=== PATIENT | male | born 1965 | race Caucasian/White ===

== ENCOUNTER → 2023-12-27 13:47 | Outpatient (REF) | payer OTHER, SELFPAY | LOC: DHCBC MAIN 13:47 | PROVIDERS: ATTENDING PHYSICIAN Internal Medicine Cardiovascular Disease; FAMILY PHYSICIAN Internal Medicine | DX: I48.91 Unspecified atrial fibrillation (principal) | CPT/HCPCS: 93306 ==

== ENCOUNTER → 2023-12-29 09:18 | Outpatient (REF) | payer OTHER, SELFPAY | LOC: RCS 09:18 | PROVIDERS: ATTENDING PHYSICIAN Internal Medicine Cardiovascular Disease; FAMILY PHYSICIAN Internal Medicine | DX: I48.91 Unspecified atrial fibrillation (principal) | CPT/HCPCS: 93225; 93226 ==

== ENCOUNTER 2025-01-17 06:27 | Day surgery (SDC) | payer OTHER, SELFPAY | END 2025-01-17 10:59 | disposition home or self-care (01) | LOC: GI 06:27 | PROVIDERS: ATTENDING PHYSICIAN Internal Medicine | DX: Z12.11 Encounter for screening for malignant neoplasm of colon (principal); K57.30 Diverticulosis of large intestine without perforation or abscess without bleeding; K64.8 Other hemorrhoids; K55.20 Angiodysplasia of colon without hemorrhage; D12.2 Benign neoplasm of ascending colon; D12.3 Benign neoplasm of transverse colon; D12.8 Benign neoplasm of rectum; D12.5 Benign neoplasm of sigmoid colon; K63.5 Polyp of colon; Z80.0 Family history of malignant neoplasm of digestive organs; Z83.719 Family history of colon polyps, unspecified | CPT/HCPCS: 45385; 45380; 88305 ==

== ENCOUNTER 2025-09-16 19:59 | Emergency (ER) | payer OTHER, SELFPAY ==
[2025-09-16 20:05] VITALS: BP 112/77
[2025-09-16 20:23] LABS: Hematocrit 48.0 % (39.0-52.0); Hemoglobin 16.4 g/dL (13.0-18.0); Mean Corp Hgb Conc. 34.2 g/dL (33.0-37.0); Mean Corpuscular Volume 89.2 fL (80.0-94.0); Nucleated Red Blood Cells % 0 % (-); Platelet Count 202 10^3/uL (130-400); Red Cell Dist. Width 12.7 % (11.5-14.5); Urine Character Slightly Cloudy (Clear)
[2025-09-16 20:31] LABS: Urine Squamous Cell 0-2 /LPF (Few)
[2025-09-16 20:32] LABS: Urine White Cell 0-2 /HPF (0-5)
[2025-09-16 20:46] LABS: ALT (SGPT) 32 U/L (0-50); AST (SGOT) 27 U/L (17-59); Albumin 4.3 g/dl (3.5-5.0); Alkaline Phosphatase 59 U/L (38-126); Blood Urea Nitrogen 20 mg/dl (9-20); Calcium 8.8 mg/dl (8.4-10.2); Carbon Dioxide 25 mmol/L (22-30); Chloride 100 mmol/L (98-107); Glucose 136 mg/dl (70-99); Lipase 40 U/L (23-300); Potassium 4.2 mmol/L (3.5-5.1); Sodium 134 mmol/L (135-145); Total Protein 7.7 g/dl (6.3-8.2); eGFR > 60.00
[2025-09-16 22:27] VITALS: BMI 29.6
[2025-09-16 22:58] VITALS: BP 106/74; BP 119/79; BP 138/79; PULSE 57; PULSE 83
[2025-09-16 23:17] LABS: COVID-19 Antigen Negative (Negative)
--- NOTE | 2025-09-17 00:26 | ED.GENMED ---
History of Present Illness
General
Chief Complaint: Cold/Flu/URI Symptoms
Source: patient
Exam Limitations: none
Time Seen by Provider: 09/16/25 23:01
Nursing documentation reviewed up to this point in time: agreed with
History of Present Illness
History of Present Illness:
60-year-old male presenting to the emergency department today with concerns of chills body aches over the past 2 days. Denies any significant chest pain shortness of breath abdominal pain nausea vomiting has had some loose and bowel movements but
denies additional symptoms otherwise.
Past History
Past History
ED Past Medical History: Hypercholesterolemia
ED Past Surgical History: None
Social History
Tobacco: Non-smoker
Alcohol: Occasional
Personal:
Living: with family
Family History
Family History: Diabetes and CAD; Negative Hypertension, Asthma or Cancer
Review of Systems
Review of Systems
Allergies reviewed?: Yes
All Other Systems: ROS reviewed and negative except as documented in HPI and ROS
Phy Exam
Physical Exam
Physical Exam:
GENERAL: Alert , in no apparent distress
EYE: pupils equal and reactive
NECK: Supple, no significant adenopathy.
ENT: o/p clr, mmm.
CARDIAC: Regular rate and rhythm .
LUNGS: Clear breath sounds bilaterally, no acute respiratory distress, no wheezes/rales/rhonchi
ABDOMEN: Soft, without focal tenderness, no r/g, no cvat
NEUROLOGICAL: Alert and oriented, no focal neuro deficits
SKIN: Warm and dry, skin intact.
MUSCULOSKELETAL: No edema, well perfused.
PSYCH: Normal and appropriate interaction.
Course
Orders/Labs/Results
Orders:
Orders
09/16/25 20:08
Electrocardiogram (*1) Urgent
Reason for Study: Abdominal Pain
EKG- Treatment ONCE
09/16/25 20:12
Complete Blood Count/With Diff Urgent
Comprehensive Metabolic Panel Urgent
Lipase Urgent
Monotest Urgent
Urinalysis Reflex To Culture Urgent
Date Specimen was Collected: 09/16/25
Time Specimen was Collected: 20:08
Urine Microscopic Reflex Cult Urgent
09/16/25 22:35
COVID-19 Antigen Urgent
Source: Nasal Swab
Influenza A+B Rapid Molecular Urgent
ALEC Source: Nasal Swab
Specimen Description:
09/17/25 00:16
0.9% Sodium Chloride 1000 ml [Nss] 1,000 ml IV BOLUS
Abnormal Lab Results
09/16/25
20:12
Absolute Monos (auto) 0.8 H 10^3/uL
(0.1-0.6)
Lymphocytes % 19.0 L %
(20.5-51.1)
Monocytes % 11.5 H %
(1.7-9.3)
Sodium 134 L mmol/L
(135-145)
Glucose 136 H mg/dl
(70-99)
Urine Ketones 1+ A
(Negative)
Ur Occult Blood Reflex 2+ A
(Negative)
Urine RBC 7-10 A /HPF
(0-2)
Urine Bacteria (Reflex) Few A
(Negative)
Urine Albumin (Reflex) 2+ A
(Neg - Trace)
09/16/25 20:12
09/16/25 20:12
Vital Signs
Initial and Last Documented VS:
Initial Vital Signs
Temp Pulse Resp BP Pulse Ox
97.8 F 58 16 112/77 99
09/16/25 20:05 09/16/25 20:05 09/16/25 20:05 09/16/25 20:05 09/16/25 20:05
Last Documented Vital Signs
Temp Pulse Resp BP Pulse Ox
97.8 F 58 16 112/77 99
09/16/25 20:05 09/16/25 20:05 09/16/25 20:05 09/16/25 20:05 09/17/25 00:30
MDM/Problems Addressed
MDM/Problems Addressed:
60-year-old male presenting to the emergency department today with concerns of vague symptoms over the past few days. Some vague chills body aches. Thought he may have had a viral syndrome. On arrival here vital signs are normal patient no
distress labs showing slightly low sodium level otherwise labs and urinalysis unremarkable. Initial EKG showing A-fib with heart rate of 118. However heart rate in the 80s during my assessment and while on the monitor here. He was given a liter
of fluid with improving symptoms otherwise stable for discharge. Return precautions given.
*Pulse Oximetry
SaO2: 99
Oxygen Mode of Delivery: Room air
Patient hypoxic: no (99)
*Critical Care Note
Total Time (30-74mins, 75-104mins- exclusive of procedures): Not Applicable
ED Attending Note
-
Portions of this chart may have been created with voice recognition software.� Occasional wrong word or��sound alike� substitutions may have occurred due to the inherent limitations of voice recognition software.
Discharge Plan
Departure
Patient Disposition: Home (Routine Discharge)
Date of Disposition: 09/17/25
Time of Disposition: 01:21
Patient with high blood pressure during this ER visit?: No
Condition: Good
Covid-19: Not Applicable
Discharge Problem:
Weakness
Instructions: Weakness - ED (DC)
Prescriptions:
No Action
simvastatin 20 MG tablet
20 mg PO QPM
aspirin 81 MG tablet,chewable
81 mg PO DAILY
omeprazole magnesium [Prilosec OTC] 20 MG tablet,delayed release (DR/EC)
20 mg PO DAILY
krill oil 500 MG capsule
500 mg PO DAILY
apixaban [Eliquis] 5 MG tablet
5 mg PO BID Qty: 60 0RF
metoprolol succinate 50 MG tablet extended release 24 hr
50 mg PO DAILY Qty: 20 0RF
Referrals:
Vanessa Potts DO [Family Provider, Internal Medicine]
Activity Restrictions/Additional Instructions:
Your workup today was reassuring. Please follow-up close with the primary care doctor. Return for any worsening, new or concerning symptoms.
Interventions
Interventions:
*General Assessment Last Done: 09/16/25 22:27
*Neglect/Abuse Screening Last Done: 09/16/25 20:05
*ED COVID-19 Vaccine History Last Done: 09/16/25 22:27
*ED Influenza Vaccine History Last Done: 09/16/25 22:27
[facility] Fall Risk Assessment Tool Last Done: 09/16/25 22:27
*Risk Screen - Suicide (C-SSRS) Last Done: 09/16/25 20:05
ED- Pulmonary Assessment Last Done: 09/16/25 22:27
Discharge Date and Time
Print Language: MONGOLIAN
[2025-09-17] MEDS: NSS 1000 IV (00:49)
[2025-09-17 00:52] VITALS: BP 128/87
[2025-09-17 01:00] VITALS: BP 130/97
[2025-09-17 01:46] VITALS: BP 133/90
== END 2025-09-17 01:55 | disposition home or self-care (01) ==
LOC: EMR 19:59
PROVIDERS: Emergency Medicine; EMERGENCY PHYSICIAN Emergency Medicine; FAMILY PHYSICIAN Internal Medicine
DX: R53.1 Weakness (principal); I48.91 Unspecified atrial fibrillation; E78.00 Pure hypercholesterolemia, unspecified; Z79.82 Long term (current) use of aspirin
CPT/HCPCS: 99284; 96360; 80053; 81003; 81015; 83690; 85025; 86308; 87502; 87811; 93005